=== PATIENT | male | born 1985 | race African-American/Black ===

== ENCOUNTER 2016-07-24 13:39 | Emergency (ER) | payer SELFPAY ==
[2016-07-24] MEDS ORDERED: Benzonatate 100 MG CAP ONE (15:53)
[2016-07-24] MEDS ORDERED: AMOXicillin 250 MG CAP ONE (15:53)
--- NOTE | 2016-07-24 15:56 | PICIS ---
[facility] EMERGENCY RECORD TRIAGE (MonJul 24, 2016 13:53 SCHI) TRIAGE NOTES: COUGH, CONGESTION, HEADACHE, HURTS ALL OVER, NOT FEELING WELL. ([place] Jul 24, 2016 13:53 SCHI) PATIENT: NAME: Davey Umaña, AGE: 30, GENDER: male, : Sat 1985, TIME OF GREET: MonJul 24, 2016 13:39, PREFERRED LANGUAGE: [place]ayan, ETHNICITY: Not or , ECODE BILLING MAP: [facility], Zip Code: [address], KG WEIGHT: 58.97, PHONE: , , , PERSON ID: [id number], PCP: NONE. ([place] Jul 24, 2016 13:53 SCHI) COMPLAINT: NOT FEELING WELL. ([place] Jul 24, 2016 13:53 SCHI) ADMISSION: URGENCY: 4 Non Urgent, ADMISSION SOURCE: Home, TRANSPORT: Walk-in, BED: WAIT. ([place] Jul 24, 2016 13:53 SCHI) ASSESSMENT: Assessment: ALERT AND ORIENTED X 4, SKIN WARM AND DRY RESP EVEN AND UNLABORED,. (13:56 SCHI) TRIAGE SCREENING: Patient denies suicidal ideation, Patient denies presence of domestic violence. (13:56 SCHI) PROVIDERS: TRIAGE NURSE: Jayshree Brooks RN. ([place] Jul 24, 2016 13:53 SCHI) VITAL SIGNS: BP 123/77, Pulse 61, Resp 20, Temp 96.6, (Tympanic), O2 Sat 100, on Room Air, Time 07/24/2016 13:52. (13:52 SCHI) KNOWN ALLERGIES No Known Drug Allergies CURRENT MEDICATIONS (13:53 SCHI) None [facility] VITAL SIGNS (13:52 SCHI) VITAL SIGNS: BP: 123/77, Pulse: 61, Resp: 20, Temp: 96.6 (Tympanic), O2 sat: 100 on Room Air, Time: 07/24/2016 13:52. NURSING ASSESSMENT: FOCUSED (14:28 SCHI) CONSTITUTIONAL: Patient arrives ambulatory, Gait steady, History obtained from patient, Patient appears comfortable, Patient cooperative, Patient alert, Oriented to person, place and time, Skin warm, Skin dry, Skin normal in color, Mucous membranes pink, Mucous membranes moist, Patient is well-groomed, Patient complains of COUGH, CONGESTION, FLU SYMPTOMS. PAIN: BODY ACHES, HEADACHE. EYES: Focused eye assessment finding include pupils equally round and reactive to light. NEURO: Focused neuro assessment findings include patient alert, cooperative, Speech coherent. RESPIRATORY: Focused respiratory assessment findings include breath sounds clear, Notes: DRY, CONSTANT COUGH, RUNNY NOSE. ABDOMEN: Focused abdominal assessment findings include abdomen soft, non tender. &a-1R&a+25V*p+0X*i8489A*c202B*c15G*c2P*p-0X&a-25V&a+1R Name: Davey Umaña : 1985 M30 MedRec: [id number] AcctNum: [id number] Prepared: Emperatriz Jul 24, 2016 16:21 by Interface Page 1 of 9 pMD [facility] EMERGENCY RECORD GENITOURINARY: Focused genitourinary assessment not applicable. MUSCULOSKELETAL: Focused musculoskeletal assessment findings include normal range of motion. LACERATION: Focused laceration assessment not applicable. NOTES: Patient tolerated procedure well. NURSING PROCEDURE: BEDSIDE TESTING (14:28 SCHI) RAPID STREP: Rapid strep indicated for throat pain, Notes: SPECIMEN OBTAINED AND SENT TO LAB. SAFETY: Side rails up, Cart/Stretcher in lowest position, Hospital ID band on. NURSING PROCEDURE: DISCHARGE NOTE (16:05 SCHI) DISCHARGE: Patient discharged to home, ambulating without assistance, family driving, accompanied by //partner, Summary of Care printed/ provided, Patient requested and was provided an electronic copy of Discharge Instructions, Transition record given to patient, Discharge instructions given to patient, Simple or moderate discharge teaching performed, Prescriptions given and instructions on side effects given, Medication reconciliation form given, Above person(s) verbalized understanding of discharge instructions and follow-up care, Patient treated and evaluated by physician. BELONGINGS: Belongings and valuables with patient at time of discharge include:, Belongings remain with patient, Valuables remain with patient. NOTES: Emotional support needed and given, Patient tolerated procedure well. SAFETY: Side rails up, Cart/Stretcher in lowest position, Family at bedside, Hospital ID band on. NURSING PROCEDURE: ENT (14:28 SCHI) ENT: Nasal swab collected, labeled in the presence of the patient and sent to lab for testing of, influenza A, influenza B. ORDER DETAILS Order Name: Influenza A&B Ag Screen, Status: Active, Time: 14:05 07/24/2016, User: XIOMARA, - Ordered for: MD Sanchez Lloyd, - Entered by: MD Sanchez Lloyd - Emperatriz Jul 24, 2016 14:05, - Quantity: 1, Order Name: Strep Group A Screen, Status: Active, Time: 14:05 07/24/2016, User: XIOMARA, - Ordered for: MD Sanchez Lloyd, - Entered by: MD Sanchez Lloyd - Emperatriz Jul 24, 2016 14:05, - Quantity: 1. MEDICATION ADMINISTRATION SUMMARY &a-1R&a+25V*p+0X*x5890B*c202B*c15G*c2P*p-0X&a-25V&a+1R Name: Davey Umaña : 1985 M30 MedRec: [id number] AcctNum: [id number] Prepared: Emperatriz Jul 24, 2016 16:21 by Interface Page 2 of 9 D [facility] EMERGENCY RECORD Drug Name: Tessalon Perles, Dose Ordered: 200 mg, Route: Oral, Status: Given, Time: 15:55 07/24/2016, Drug Name: amoxicillin, Dose Ordered: 500 mg, Route: Oral, Status: Given, Time: 15:55 07/24/2016, Detailed record available in Medication Service section. MEDICATION SERVICE (15:55 [facility]) amoxicillin: Order: amoxicillin (amoxicillin trihydrate) - Dose: 500 mg : Oral Schedule: Now Ordered by: Caio Sanchez MD Entered by: MD Emperatriz Becker Jul 24, 2016 15:47 , Acknowledged by: ORI Mcqueen Jul 24, 2016 15:52 Documented as given by: ORI Mcqueen Jul 24, 2016 15:55 Patient, Medication, Dose, Route and Time verified prior to administration. Site: Medication administered P.O., Correct patient, time, route, dose and medication confirmed prior to administration, Patient advised of actions and side-effects prior to administration, Allergies confirmed and medications reviewed prior to administration. Tessalon Perles: Order: Tessalon Perles (benzonatate) - Dose: 200 mg : Oral Schedule: Now Ordered by: Caio Sanchez MD Entered by: MD Emperatriz Becker Jul 24, 2016 15:47 , Acknowledged by: ORI Mcqueen Jul 24, 2016 15:52 Documented as given by: ORI Mcqueen Jul 24, 2016 15:55 Patient, Medication, Dose, Route and Time verified prior to administration. Site: Medication administered P.O., Correct patient, time, route, dose and medication confirmed prior to administration, Patient advised of actions and side-effects prior to administration, Allergies confirmed and medications reviewed prior to administration. HPI COUGH (15:10 LLDO) CHIEF COMPLAINT: Patient presents for evaluation of cough, productive of yellow sputum, Patient presents for evaluation of see triage note. Headache, low grade fever, sore throat, body aches...all about 3 days. HISTORIAN: History provided by patient, escort from [facility]. LOCATION: Symptoms are generalized. QUALITY: Denies tightness, Denies wheezing, Pain is dull in nature, described as aching. SEVERITY: Maximum severity of symptoms moderate, Currently symptoms are moderate. TIME COURSE: Gradual onset of symptoms, Symptoms are worsening, are constant. ASSOCIATED WITH: Associated symptoms reviewed, Associated with dyspnea on exertion, Associated with fever, Associated with upper respiratory infection, Associated with weakness. &a-1R&a+25V*p+0X*b8438F*c202B*c15G*c2P*p-0X&a-25V&a+1R Name: Davey Umaña : 1985 M30 MedRec: [id number] AcctNum: [id number] Prepared: Emperatriz Jul 24, 2016 16:21 by Interface Page 3 of 9 pMD [facility] EMERGENCY RECORD EXACERBATED BY: Patient's condition exacerbated by deep breaths, Patient's condition exacerbated by exercise, Patient's condition exacerbated by exposure to smoking. RELIEVED BY: Patient's condition relieved by rest. ROS CONSTITUTIONAL: Historian reports fatigue, reports fever, reports malaise, reports weakness. (15:15 LLDO) EYES: Negative eye review of systems, Historian denies eye pain, denies eye redness, denies eye discharge. (15:19 LLDO) ENT: Historian reports sore throat. (15:15 LLDO) CARDIOVASCULAR: Historian reports dyspnea on exertion. (15:15 LLDO) RESPIRATORY: Historian reports cough, reports sputum. described as thick, yellow, Historian denies stridor, denies wheezing. (15:15 LLDO) GI: Historian reports anorexia, reports appetite changes, denies constipation, denies diarrhea, reports hematemesis, reports hematochezia, reports jaundice, reports melena, reports nausea, denies stool changes, denies vomiting. (15:15 LLDO) MUSCULOSKELETAL: Historian reports myalgias. (15:15 LLDO) NEUROLOGIC: Historian denies confusion, denies dizziness, denies dysphasia, denies focal weakness, denies gait changes, reports headache, denies irritability, denies lethargy, denies mental status changes. (15:15 LLDO) HEMO/LYMPHATIC: Normal hematologic/lymphatic system review, Historian denies abnormal blood clotting, denies gum bleeding, denies petechiae. (15:19 LLDO) ALLERGIC/IMMUNOLOGIC: Normal allergy/immunologic system review, Historian denies eczema, denies environmental allergies, denies food allergies. (15:19 LLDO) PSYCHIATRIC: Negative psychiatric review of systems, Historian denies alcohol abuse, denies anxiety, denies depression, denies drug abuse, denies hallucinations. (15:19 LLDO) NOTES: All systems reviewed, negative except as described above. (15:15 LLDO) PAST MEDICAL HISTORY MEDICAL HISTORY: No past medical history, Flu vaccine not up to date. (13:56 SCHI) MALE SURGICAL HISTORY: Patient has no surgical history. (13:56 SCHI) PSYCHIATRIC HISTORY: Psychiatric history includes, anxiety, depression, Notes: 3 YEARS. (13:56 SCHI) SOCIAL HISTORY: Patient drinks socially, rarely, Patient is a &a-1R&a+25V*p+0X*s4271Y*c202B*c15G*c2P*p-0X&a-25V&a+1R Name: Davey Umaña : 1985 M30 MedRec: [id number] AcctNum: [id number] Prepared: Emperatriz Jul 24, 2016 16:21 by Interface Page 4 of 9 pMD [facility] EMERGENCY RECORD former drug user, abused marijuana, Patient has no smoking history. (13:56 SCHI) NOTES: Nursing records reviewed, Agree with nursing records, Medication list reviewed. (15:19 LLDO) PHYSICAL EXAM CONSTITUTIONAL: Vital Signs Reviewed, Patient afebrile, Pulse normal, Blood pressure normal, Respiratory rate normal, Normal pulse oximetry, Patient appears, uncomfortable, Patient appears, in moderate pain distress, Patient alert and oriented to person, place and time, Nursing notes reviewed. (15:16 LLDO) HEAD: Head exam normal, Head exam included findings of head atraumatic, normocephalic. (15:19 LLDO) EYES: Eye exam normal, Eye exam included findings of eyelids normal to inspection, Pupils equally round and reactive to light, Extraocular muscles intact. (15:19 LLDO) ENT: Ear exam normal, Nose exam normal, Pharynx, injected bilaterally, with swelling bilaterally, Uvula exam normal, Tonsils, Mouth exam included findings of, Sinus exam included findings of frontal sinuses normal, maxillary sinuses normal. (15:16 LLDO) NECK: Neck exam included findings of normal range of motion, Trachea midline, Thyroid normal. (15:16 LLDO) RESPIRATORY CHEST: Respiratory exam included findings of no respiratory distress, Rales present, Chest exam included findings of chest movement symmetrical, Chest expansion equal, no tenderness, RALES MOD AND SCATTERED. (15:16 LLDO) CARDIOVASCULAR: Cardiovascular assessment normal, Cardiovascular exam included findings of heart rate regular rate and rhythm, Heart sounds normal. (15:19 LLDO) ABDOMEN MALE: Abdominal exam normal, Abdominal exam included findings of abdomen nontender, Bowel sounds normal, no peritoneal signs. (15:19 LLDO) BACK: Back exam normal, Back exam included findings of normal inspection, range of motion normal. (15:19 LLDO) UPPER EXTREMITY: Upper extremity exam normal, Upper extremity exam included findings of inspection normal, Range of motion normal. (15:19 LLDO) LOWER EXTREMITY: Lower extremity exam normal, Lower extremity exam included findings of inspection normal, Range of motion normal. (15:19 LLDO) NEURO: Neuro exam normal, Neuro exam findings include patient oriented to person, place and time, Speech normal, Lulu coma scale 15. (15:19 LLDO) SKIN: Skin exam normal, Skin exam included findings of skin warm, dry, and normal in color, no rash. (15:19 LLDO) PSYCHIATRIC: Psychiatric exam normal, Psychiatric exam included findings of patient oriented to person place and time, Normal affect, Judgment normal. (15:19 LLDO) &a-1R&a+25V*p+0X*c1374F*c202B*c15G*c2P*p-0X&a-25V&a+1R Name: Davey Umaña : 1985 M30 MedRec: [id number] AcctNum: [id number] Prepared: Emperatriz Jul 24, 2016 16:21 by Interface Page 5 of 9 pMD [facility] EMERGENCY RECORD EVENTS TRANSFER: Triage to Emergency Waiting. (13:53 SCHI) Emergency Waiting to Triage. (14:10 SFRE) Emergency Triage to Main ED -H01. (14:10 SFRE) Removed from Emergency Main ED -H01. (16:07 SCHI) PROBLEM LIST No recorded problems DIAGNOSIS (15:46 LLDO) FINAL: PRIMARY: Acute bronchitis. DISPOSITION PATIENT: Disposition Type: Discharge, Disposition: *Discharge Home. (15:46 LLDO) Patient left the department. (16:07 SCHI) INSTRUCTION (16:03 LLDO) DISCHARGE: BRONCHITIS, ABX TX (ADULT). FOLLOWUP: Follow up with Primary Care Physician in 7-10 days. SPECIAL: Follow-up with your PCP. PRESCRIPTION (15:48 LLDO) amoxicillin: CAPSULE (HARD, SOFT, ETC.) : 500 mg : ORAL : Quantity: 1 Unit: cap(s) Route: ORAL Schedule: 3 times a day Dispense: 30 May substitute. Refills: No Refills . NOTES: No Refills. Phenergan DM: SYRUP : : ORAL : Quantity: 1-2 Unit: teaspoon Route: ORAL Schedule: every 4 hours prn Dispense: 180 Unit: mL May substitute. Refills: No Refills . NOTES: ^s=No Refills No Refills. IMAGING (16:06 SCHI) *DISCHARGE INSTRUCTIONS RECEIPT: Image captured from scanner. *SUPPLY CHARGE SHEET: Image captured from scanner. ADMIN DIGITAL SIGNATURE: MD Sanchez Lloyd. (15:48 LLDO) MD Sanchez Lloyd. (16:05 LLDO) ORI Brooks, Jayshree. (16:07 SCHI) RESULTS (15:41 SCHI) MICROBIOLOGY: Strep Group A Screen: [id number] Collection DT: Emperatriz Jul 24, 2016 15:37, See comment below , @ ER ROOM#: [id number] Source: Throat &a-1R&a+25V*p+0X*d4580B*c202B*c15G*c2P*p-0X&a-25V&a+1R Name: Davey Umaña : 1985 M30 MedRec: [id number] AcctNum: [id number] Prepared: Emperatriz Jul 24, 2016 16:21 by Interface Page 6 of 9 pMD [facility] EMERGENCY RECORD Spec Desc: PENDING, Strep A Negative CDC recommends , confirmation by , culture on all , negative , Strep negative line 1 Group A , Streptococcus rapid , screens. Please , order , Strep negative line 2 a throat culture if , clinically , indicated. , Rapid Strep Screen:Throat Negative . Influenza A&B Ag Screen: [id number] Collection DT: Emperatriz Jul 24, 2016 15:38, See comment below , @ ER ROOM#: [id number] Source: Nasal swab Spec Desc: , Influenza A Antigen: NEGATIVE for the , presence of , INFLUENZA A Antigen , Influenza B Antigen: NEGATIVE for the , presence of , INFLUENZA B Antigen , The rapid Flu A&B test can distinguish between influenza A , Influenza A&B Ag Screen See comment below , and B viruses, but it does not differentiate influenza , Influenza A&B Ag Screen See comment below , subtypes. , Influenza A&B Ag Screen See comment below , Influenza A&B Ag Screen See comment below , Influenza A&B Ag Screen See comment below , Influenza A&B Ag Screen See comment below , characteristics of this device with human specimens infected , Influenza A&B Ag Screen See comment below , with the 2008 H1N1 influenza virus have not been , Influenza A&B Ag Screen See comment below , established. For example: this test cannot distinguish , Influenza A&B Ag Screen See comment below , influenza infections caused by novel H1N1 influenza A , Influenza A&B Ag Screen See comment below , viruses versus seasonal influenza A viruses. , Influenza A&B Ag Screen See comment below , , Influenza A&B Ag Screen See comment below , A negative result does not exclude influenza virus , Influenza A&B Ag Screen See comment below , infection; therefore, if more conclusive testing is desired, , Influenza A&B Ag Screen See comment below , follow up confirmatory testing is warranted., Influenza A&B Ag Screen See comment below . Strep Group A Screen: [id number] Collection DT: Emperatriz Jul 24, 2016 &a-1R&a+25V*p+0X*n5741L*c202B*c15G*c2P*p-0X&a-25V&a+1R Name: Davey Umaña : 1985 M30 MedRec: [id number] AcctNum: [id number] Prepared: Emperatriz Jul 24, 2016 16:21 by Interface Page 7 of 9 pMD [facility] EMERGENCY RECORD 15:37, See comment below , @ ER ROOM#: [id number] Source: Throat Spec Desc: PENDING, Strep A Negative CDC recommends , confirmation by , culture on all , negative , Strep negative line 1 Group A , Streptococcus rapid , screens. Please , order , Strep negative line 2 a throat culture if , clinically , indicated. , Rapid Strep Screen:Throat Negative . Influenza A&B Ag Screen: [id number] Collection DT: Emperatriz Jul 24, 2016 15:38, See comment below , @ ER ROOM#: [id number] Source: Nasal swab Spec Desc: , Influenza A Antigen: NEGATIVE for the , presence of , INFLUENZA A Antigen , Influenza B Antigen: NEGATIVE for the , presence of , INFLUENZA B Antigen , The rapid Flu A&B test can distinguish between influenza A , Influenza A&B Ag Screen See comment below , and B viruses, but it does not differentiate influenza , Influenza A&B Ag Screen See comment below , subtypes. , Influenza A&B Ag Screen See comment below , Influenza A&B Ag Screen See comment below , Influenza A&B Ag Screen See comment below , Influenza A&B Ag Screen See comment below , characteristics of this device with human specimens infected , Influenza A&B Ag Screen See comment below , with the 2008 H1N1 influenza virus have not been , Influenza A&B Ag Screen See comment below , established. For example: this test cannot distinguish , Influenza A&B Ag Screen See comment below , influenza infections caused by novel H1N1 influenza A , Influenza A&B Ag Screen See comment below , viruses versus seasonal influenza A viruses. , Influenza A&B Ag Screen See comment below , , Influenza A&B Ag Screen See comment below , A negative result does not exclude influenza virus , Influenza A&B Ag Screen See comment below , infection; therefore, if more conclusive testing is desired, , Influenza A&B Ag Screen See comment below , follow up confirmatory &a-1R&a+25V*p+0X*k3994V*c202B*c15G*c2P*p-0X&a-25V&a+1R Name: Davey Umaña : 1985 [facility] [place] MedRec: [id number] AcctNum: [id number] Prepared: Emperatriz Jul 24, 2016 16:21 by Interface Page 8 of 9 D [facility] EMERGENCY RECORD testing is warranted., Influenza A&B Ag Screen See comment below . Coley: XIOMARA=MD Laura, Caio KONG=ORI Brooks, Jayshree BELTRAN=ORI Lopez, Amy &a-1R&a+25V*p+0X*e7605U*c202B*c15G*c2P*p-0X&a-25V&a+1R Name: Davey Umaña : 1985 [facility] [place] MedRec: [id number] AcctNum: [id number] Prepared: Emperatriz Jul 24, 2016 16:21 by Interface Page 9 of 9 D [facility] MEDICATION RECONCILIATION You were seen in the Emergency Department on: [place] Jul 24, 2016 KNOWN ALLERGIES No Known Drug Allergies MEDICATIONS GIVEN WHILE IN THE EMERGENCY DEPARTMENT amoxicillin (amoxicillin trihydrate) - Dose: 500 milligram(s) : Oral Tessalon Perles (benzonatate) - Dose: 200 milligram(s) : Oral HOME MEDICATIONS None CONTINUE PRESCRIBED [facility] Continue as prescribed Notes from the emergency department Reviewed with family Reviewed with patient PRESCRIPTIONS (2) Printed (2) amoxicillin : CAPSULE (HARD, SOFT, ETC.) : 500 mg : ORAL Quantity: 1, Unit: cap(s), Route: ORAL, Schedule: 3 times a day, Dispense: 30 &a-1R&a+25V*p+0X*r6985W*c202B*c15G*c2P*p-0X&a-25V&a+1R Name: Davey Umaña : 1985 M30 MedRec: [id number] AcctNum: [id number] Prepared: Emperatriz Jul 24, 2016 16:21 by Interface pMD MTDD
--- NOTE | 2016-07-24 15:56 | ERRECORD ---
[facility] EMERGENCY RECORD HPI COUGH (15:10 LLDO) CHIEF COMPLAINT: Patient presents for evaluation of cough, productive of yellow sputum, Patient presents for evaluation of see triage note. Headache, low grade fever, sore throat, body aches...all about 3 days. HISTORIAN: History provided by patient, escort from [facility]. LOCATION: Symptoms are generalized. QUALITY: Denies tightness, Denies wheezing, Pain is dull in nature, described as aching. SEVERITY: Maximum severity of symptoms moderate, Currently symptoms are moderate. TIME COURSE: Gradual onset of symptoms, Symptoms are worsening, are constant. ASSOCIATED WITH: Associated symptoms reviewed, Associated with dyspnea on exertion, Associated with fever, Associated with upper respiratory infection, Associated with weakness. EXACERBATED BY: Patient's condition exacerbated by deep breaths, Patient's condition exacerbated by exercise, Patient's condition exacerbated by exposure to smoking. RELIEVED BY: Patient's condition relieved by rest. ROS CONSTITUTIONAL: Historian reports fatigue, reports fever, reports malaise, reports weakness. (15:15 LLDO) EYES: Negative eye review of systems, Historian denies eye pain, denies eye redness, denies eye discharge. (15:19 LLDO) ENT: Historian reports sore throat. (15:15 LLDO) CARDIOVASCULAR: Historian reports dyspnea on exertion. (15:15 LLDO) RESPIRATORY: Historian reports cough, reports sputum. described as thick, yellow, Historian denies stridor, denies wheezing. (15:15 LLDO) GI: Historian reports anorexia, reports appetite changes, denies constipation, denies diarrhea, reports hematemesis, reports hematochezia, reports jaundice, reports melena, reports nausea, denies stool changes, denies vomiting. (15:15 LLDO) MUSCULOSKELETAL: Historian reports myalgias. (15:15 LLDO) NEUROLOGIC: Historian denies confusion, denies dizziness, denies dysphasia, denies focal weakness, denies gait changes, reports headache, denies irritability, denies lethargy, denies mental status changes. (15:15 LLDO) HEMO/LYMPHATIC: Normal hematologic/lymphatic system review, Historian denies abnormal blood clotting, denies gum bleeding, denies petechiae. (15:19 LLDO) ALLERGIC/IMMUNOLOGIC: Normal allergy/immunologic system review, Historian denies eczema, denies environmental allergies, denies food &a-1R&a+25V*p+0X*[id number]*c202B*c15G*c2P*p-0X&a-25V&a+1R Name: Davey Umaña : 1985 M30 MedRec: [id number] AcctNum: [id number] Prepared: Emperatriz Jul 24, 2016 16:14 by Interface Page 1 of 4 pMD [facility] EMERGENCY RECORD allergies. (15:19 LLDO) PSYCHIATRIC: Negative psychiatric review of systems, Historian denies alcohol abuse, denies anxiety, denies depression, denies drug abuse, denies hallucinations. (15:19 LLDO) NOTES: All systems reviewed, negative except as described above. (15:15 LLDO) PAST MEDICAL HISTORY MEDICAL HISTORY: No past medical history, Flu vaccine not up to date. (13:56 SCHI) MALE SURGICAL HISTORY: Patient has no surgical history. (13:56 SCHI) PSYCHIATRIC HISTORY: Psychiatric history includes, anxiety, depression, Notes: 3 YEARS. (13:56 SCHI) SOCIAL HISTORY: Patient drinks socially, rarely, Patient is a former drug user, abused marijuana, Patient has no smoking history. (13:56 SCHI) NOTES: Nursing records reviewed, Agree with nursing records, Medication list reviewed. (15:19 LLDO) KNOWN ALLERGIES No Known Drug Allergies CURRENT MEDICATIONS (13:53 SCHI) None [place] VITAL SIGNS (13:52 SCHI) VITAL SIGNS: BP: 123/77, Pulse: 61, Resp: 20, Temp: 96.6 (Tympanic), O2 sat: 100 on Room Air, Time: 07/24/2016 13:52. PHYSICAL EXAM CONSTITUTIONAL: Vital Signs Reviewed, Patient afebrile, Pulse normal, Blood pressure normal, Respiratory rate normal, Normal pulse oximetry, Patient appears, uncomfortable, Patient appears, in moderate pain distress, Patient alert and oriented to person, place and time, Nursing notes reviewed. (15:16 LLDO) HEAD: Head exam normal, Head exam included findings of head atraumatic, normocephalic. (15:19 LLDO) EYES: Eye exam normal, Eye exam included findings of eyelids normal to inspection, Pupils equally round and reactive to light, Extraocular muscles intact. (15:19 LLDO) ENT: Ear exam normal, Nose exam normal, Pharynx, injected bilaterally, with swelling bilaterally, Uvula exam normal, Tonsils, Mouth exam included findings of, Sinus exam included findings of frontal sinuses normal, maxillary sinuses normal. (15:16 LLDO) NECK: Neck exam included findings of normal range of motion, &a-1R&a+25V*p+0X*k5137W*c202B*c15G*c2P*p-0X&a-25V&a+1R Name: Davey Umaña : 1985 M30 MedRec: [id number] AcctNum: [id number] Prepared: Emperatriz Jul 24, 2016 16:14 by Interface Page 2 of 4 pMD [facility] EMERGENCY RECORD Trachea midline, Thyroid normal. (15:16 LLDO) RESPIRATORY CHEST: Respiratory exam included findings of no respiratory distress, Rales present, Chest exam included findings of chest movement symmetrical, Chest expansion equal, no tenderness, RALES MOD AND SCATTERED. (15:16 LLDO) CARDIOVASCULAR: Cardiovascular assessment normal, Cardiovascular exam included findings of heart rate regular rate and rhythm, Heart sounds normal. (15:19 LLDO) ABDOMEN MALE: Abdominal exam normal, Abdominal exam included findings of abdomen nontender, Bowel sounds normal, no peritoneal signs. (15:19 LLDO) BACK: Back exam normal, Back exam included findings of normal inspection, range of motion normal. (15:19 LLDO) UPPER EXTREMITY: Upper extremity exam normal, Upper extremity exam included findings of inspection normal, Range of motion normal. (15:19 LLDO) LOWER EXTREMITY: Lower extremity exam normal, Lower extremity exam included findings of inspection normal, Range of motion normal. (15:19 LLDO) NEURO: Neuro exam normal, Neuro exam findings include patient oriented to person, place and time, Speech normal, Lulu coma scale 15. (15:19 LLDO) SKIN: Skin exam normal, Skin exam included findings of skin warm, dry, and normal in color, no rash. (15:19 LLDO) PSYCHIATRIC: Psychiatric exam normal, Psychiatric exam included findings of patient oriented to person place and time, Normal affect, Judgment normal. (15:19 LLDO) MEDICATION ADMINISTRATION SUMMARY Drug Name: Skylaranthonyon Perles, Dose Ordered: 200 mg, Route: Oral, Status: Given, Time: 15:55 07/24/2016, Drug Name: amoxicillin, Dose Ordered: 500 mg, Route: Oral, Status: Given, Time: 15:55 07/24/2016, Detailed record available in Medication Service section. PROBLEM LIST No recorded problems DIAGNOSIS (15:46 LLDO) FINAL: PRIMARY: Acute bronchitis. PRESCRIPTION (15:48 LLDO) amoxicillin: CAPSULE (HARD, SOFT, ETC.) : 500 mg : ORAL : Quantity: 1 Unit: cap(s) Route: ORAL Schedule: 3 times a day Dispense: 30 May substitute. Refills: No Refills . NOTES: No Refills. Phenergan DM: SYRUP : : ORAL : Quantity: 1-2 Unit: teaspoon Route: ORAL Schedule: every 4 hours prn Dispense: 180 &a-1R&a+25V*p+0X*a9474U*c202B*c15G*c2P*p-0X&a-25V&a+1R Name: Davey Umaña : 1985 M30 MedRec: [id number] AcctNum: [id number] Prepared: Emperatriz Jul 24, 2016 16:14 by Interface Page 3 of 4 pMD [facility] EMERGENCY RECORD Unit: mL May substitute. Refills: No Refills . NOTES: ^s=No Refills No Refills. DISPOSITION PATIENT: Disposition Type: Discharge, Disposition: *Discharge Home. (15:46 LLDO) Patient left the department. (16:07 SCHI) Coley: LLDO=MD Laura, Caio SCHI=ORI Brooks, Slinda &a-1R&a+25V*p+0X*v9060C*c202B*c15G*c2P*p-0X&a-25V&a+1R Name: Davey Umaña : 1985 M30 MedRec: [id number] AcctNum: [id number] Prepared: Emperatriz Jul 24, 2016 16:14 by Interface Page 4 of 4 pMD [facility]
== END 2016-07-24 16:05 | disposition home or self-care (01) ==
LOC: MADERS 13:39
DX: J20.9 Acute bronchitis, unspecified (principal); F41.9 Anxiety disorder, unspecified; F32.9 Major depressive disorder, single episode, unspecified
CPT/HCPCS: 87430; 99283